=== PATIENT | female | born 1960 | race Caucasian/White ===

== ENCOUNTER → 2019-01-03 | Outpatient (CLI) | payer OTHER ==
[~2019-01-03] MED LIST: ADDERALL 20 MG20 M1 PO; ADDERALL 30 MG30 MG PO; ADDERALL XR 3030 MG PO; ADVAIR 250-501 EACH IH; AFRIN SALINE NA30 ML NS; AFRIN120 MG PO; ALAVERT10 MG PO; ALPRAZOLAM1 M1 PO; AMARYL PO; AMARYL4 MG PO; AMBIEN 10 MG TA10 MG PO; APAP500 PO; ASPIR 8181 M1 PO; ASPIRIN EC325 M1 PO; ASPIRIN EC325 MG PO; ASPIRIN325; ATORVASTATIN CA40 MG PO; AUGMENTIN 875875 MG PO; BIAXIN 500 MG500 M1 PO; BREO ELLIPTA 11 EACH INH; BUDEPRION XL300 MG PO; CALCIUM OYSTER500 MG PO; CHLORDIAZEPOXI1 EAC1 PO; CHROMIUM PICO200 MC1 PO; CINNAMON500 MG PO; CLONAZEPAM 1 MG1 M1 PO; CRESTOR10 MG PO; CYMBALTA60 MG PO; DIAZEPAM 10 MG10 M1 PO; DOXEPIN 25 MG C25 MG PO; DUONEB 2.5-0.5 M3 ML INH; ESTRACE1 MG PO; ESTRADIOL 1 MG T1 M1 PO; EVENING PRIMRO500 MG PO; FANAPT2 MG PO; FIRST-TESTOSTER60 G1; FISH OIL 1,001000 M1 PO; FLONASE 0.05%50 MCG NASAL; GLUCOPHAGE XR500 MG PO; GLUCOPHAGE500 MG PO; GLUMETZA500 PO; HYDROCHLOROTHIA25 M1 PO; HYDROCHLOROTHIA25 M2 PO; IBUPROFEN 800800 M1 PO; IBUPROFEN200 M2 PO; INDAPAMIDE2.5 MG PO; INVOKANA300 MG PO; KLOR-CON 10 ER10 MEQ PO; LANTUS SC; LANTUS SUBQ; LATUDA80 MG PO; LEVAQUIN 500 M500 M3 PO; LEVOTHROID100 MC1 PO; LEXAPRO20 MG PO; LISINOPRIL20 MG PO; LIVALO4 MG PO; LORATIDINE 10 M10 M1 PO; LOXAPINE5 MG PO; MAGNESIUM400 MG PO; MAXAIR AUTOHALE14 G1 IH; MAXAIR AUTOHALE14 G1 INH; MELATONIN3 MG PO; METFORMIN 500500 MG PO; MUCINEX600 MG PO; MULTIVITAMINS1 EAC7 PO; MUPIROCIN22 GM; NASONEX; NASONEX17 GM NASAL; NASONEX17 GM NS; NEURONTIN 300M300 M2 PO; NORCO 5-325 TA1 EACH PO; NOVOLOG MI100 UNIT/2 SQ; NOVOLOG100 UNIT/1; NOVOLOG100 UNIT/1 SUBQ; ORPHENADRINE C100 M2 PO; PANTOPRAZOLE SO40 MG PO; PERCOCET 5-3251 EACH PO; PREDNISONE 10 M10 M1; PREMARIN CREAM; PRISTIQ50 MG PO; PROTONIX40 M2 PO; RANITIDINE 150150 M1 PO; REMERON SOLTAB45 M1 PO; REXULTI1 MG PO; REXULTI2 MG PO; SANCTURA XR60 M1 PO; SANCTURA XR60 M2 PO; SINGULAIR 10 MG10 M1 PO; TRIAMCINOLONE16.5 GM NASAL; TYLENOL325 MG PO; VERAPAMIL HCL180 MG PO; VICODIN 5-5001 EACH PO; VIIBRYD20 MG PO; VIIBRYD40 MG PO; VITAMIN D 5050000 I1 PO; WELLBUTRIN XL150 M1 PO; XOPENEX HFA15 GM INH; ZESTRIL10 MG PO; ZPAK PO; ZYRTEC10 M5 PO; [UNRECOGNIZED DRUG - OTHER]; [UNRECOGNIZED DRUG - OTHER]; [UNRECOGNIZED DRUG - OTHER] IH; [UNRECOGNIZED DRUG - OTHER] PO; oxygen
== END ==
LOC: RAD 11:50
DX: J44.9 Chronic obstructive pulmonary disease, unspecified (principal); Z88.8 Allergy status to other drugs, medicaments and biological substances

== ENCOUNTER → 2019-04-18 | Outpatient (CLI) | payer OTHER | LOC: CAT 14:16 | DX: Z13.6 Encounter for screening for cardiovascular disorders (principal); E78.00 Pure hypercholesterolemia, unspecified; Z82.49 Family history of ischemic heart disease and other diseases of the circulatory system ==

== ENCOUNTER → 2020-01-16 | Outpatient (CLI) | payer OTHER | LOC: SJCVCIMAG 13:06 → SJCVC 13:06 | DX: I21.29 ST elevation (STEMI) myocardial infarction involving other sites (principal); I11.9 Hypertensive heart disease without heart failure; I25.10 Atherosclerotic heart disease of native coronary artery without angina pectoris; R94.31 Abnormal electrocardiogram [ECG] [EKG]; I10 Essential (primary) hypertension; E78.00 Pure hypercholesterolemia, unspecified; E11.9 Type 2 diabetes mellitus without complications; J44.9 Chronic obstructive pulmonary disease, unspecified; Z79.4 Long term (current) use of insulin; Z82.49 Family history of ischemic heart disease and other diseases of the circulatory system; Z87.891 Personal history of nicotine dependence; Z79.899 Other long term (current) drug therapy ==

== ENCOUNTER → 2020-04-26 | Outpatient (CLI) | payer OTHER | LOC: CAT 14:00 | PROVIDERS: ATTEND Internal Medicine | DX: Z12.2 Encounter for screening for malignant neoplasm of respiratory organs (principal); Z87.891 Personal history of nicotine dependence ==

== ENCOUNTER → 2020-05-07 | Outpatient (CLI) | payer OTHER ==
[2020-05-07 13:41] LABS: CREATININE 1.3 mg/dL (0.6-1.0)
== END ==
LOC: CAT 12:47
PROVIDERS: ATTEND Internal Medicine
DX: R06.02 Shortness of breath (principal); M47.9 Spondylosis, unspecified

== ENCOUNTER → 2020-07-18 | Outpatient (CLI) | payer OTHER | LOC: SJCVC 14:52 | PROVIDERS: ATTEND Internal Medicine Cardiovascular Disease | DX: I25.10 Atherosclerotic heart disease of native coronary artery without angina pectoris (principal); I10 Essential (primary) hypertension; E11.9 Type 2 diabetes mellitus without complications; E78.00 Pure hypercholesterolemia, unspecified; J44.9 Chronic obstructive pulmonary disease, unspecified; Z79.4 Long term (current) use of insulin; Z79.899 Other long term (current) drug therapy; Z82.49 Family history of ischemic heart disease and other diseases of the circulatory system; Z87.891 Personal history of nicotine dependence ==

== ENCOUNTER → 2021-02-22 | Outpatient (CLI) | payer OTHER | LOC: SJCVC 16:03 | PROVIDERS: ATTEND Internal Medicine Cardiovascular Disease | DX: R94.31 Abnormal electrocardiogram [ECG] [EKG] (principal); I25.10 Atherosclerotic heart disease of native coronary artery without angina pectoris; I10 Essential (primary) hypertension; E78.00 Pure hypercholesterolemia, unspecified; J44.9 Chronic obstructive pulmonary disease, unspecified; G47.33 Obstructive sleep apnea (adult) (pediatric); R06.02 Shortness of breath; E78.5 Hyperlipidemia, unspecified; Z90.49 Acquired absence of other specified parts of digestive tract; Z98.890 Other specified postprocedural states; Z88.8 Allergy status to other drugs, medicaments and biological substances; Z79.82 Long term (current) use of aspirin; Z79.899 Other long term (current) drug therapy; Z86.16 Personal history of COVID-19; Z87.891 Personal history of nicotine dependence; Z82.49 Family history of ischemic heart disease and other diseases of the circulatory system ==

== ENCOUNTER → 2021-05-01 | Outpatient (CLI) | payer OTHER | LOC: CAT 13:57 | PROVIDERS: ATTEND Internal Medicine | DX: Z12.2 Encounter for screening for malignant neoplasm of respiratory organs (principal); Z87.891 Personal history of nicotine dependence ==

== ENCOUNTER → 2021-09-18 | Outpatient (CLI) | payer OTHER | LOC: SJCVC 13:03 | PROVIDERS: ATTEND Internal Medicine Cardiovascular Disease | DX: R94.31 Abnormal electrocardiogram [ECG] [EKG] (principal); I25.10 Atherosclerotic heart disease of native coronary artery without angina pectoris; I10 Essential (primary) hypertension; E78.00 Pure hypercholesterolemia, unspecified; J44.9 Chronic obstructive pulmonary disease, unspecified; E11.9 Type 2 diabetes mellitus without complications; G47.33 Obstructive sleep apnea (adult) (pediatric); E78.5 Hyperlipidemia, unspecified; Z82.49 Family history of ischemic heart disease and other diseases of the circulatory system; F17.210 Nicotine dependence, cigarettes, uncomplicated; Z72.89 Other problems related to lifestyle; Z79.82 Long term (current) use of aspirin; Z79.84 Long term (current) use of oral hypoglycemic drugs; Z88.8 Allergy status to other drugs, medicaments and biological substances; Z79.899 Other long term (current) drug therapy ==

== ENCOUNTER → 2021-10-07 | Outpatient (CLI) | payer OTHER | LOC: SJCVCIMAG 09:44 | PROVIDERS: ATTEND Internal Medicine Cardiovascular Disease | DX: R00.0 Tachycardia, unspecified (principal); I25.10 Atherosclerotic heart disease of native coronary artery without angina pectoris; I10 Essential (primary) hypertension; J44.9 Chronic obstructive pulmonary disease, unspecified; E78.5 Hyperlipidemia, unspecified; E11.9 Type 2 diabetes mellitus without complications; E66.09 Other obesity due to excess calories; Z79.82 Long term (current) use of aspirin; Z79.4 Long term (current) use of insulin; Z79.899 Other long term (current) drug therapy; Z86.16 Personal history of COVID-19; Z72.89 Other problems related to lifestyle; Z87.891 Personal history of nicotine dependence ==